=== PATIENT | female | born 1995 | race Two or more races ===

== ENCOUNTER 2017-07-09 13:10 | Emergency (ER) | payer MEDICAID ==
[~2017-07-09] VITALS: Ht 152.4 cm; Wt 44.0 kg
[2017-07-09] MEDS ORDERED: ACETAMINOPHEN 325 MG TABLET ONE (13:26)
[2017-07-09] MEDS ORDERED: AMPICILLIN/SULBACTAM 3 GM in SODIUM CHLORIDE 0.9% 100 ML IVPB ONE (13:30)
[2017-07-09] MEDS ORDERED: ACETAMINOPHEN 325 MG TABLET PO ONE (13:30)
[2017-07-09] MEDS ORDERED: PLEASE ENTER ALLERGIES MC SCH (14:00)
[2017-07-09 15:07] VITALS: BP 111/85
== END 2017-07-09 15:08 | disposition home or self-care (01) ==
LOC: ED 13:15
DX: O9A.211 Injury, poisoning and certain other consequences of external causes complicating pregnancy, first trimester (principal); S51.841A Puncture wound with foreign body of right forearm, initial encounter; W54.0XXA Bitten by dog, initial encounter; Y93.89 Activity, other specified; Y92.89 Other specified places as the place of occurrence of the external cause; Y99.8 Other external cause status; Z3A.01 Less than 8 weeks gestation of pregnancy
CPT/HCPCS: 73060; 73090; 96365; 99284; J0295

== ENCOUNTER 2018-08-09 13:46 | Emergency (ER) | payer MEDICAID ==
[~2018-08-09] VITALS: Ht 152.4 cm; Wt 50.5 kg
[2018-08-09 14:01] VITALS: BP 149/74
[2018-08-09 14:49] LABS: RAPID INFLUENZA A Negative (Negative); RAPID INFLUENZA B Negative (Negative)
== END 2018-08-09 16:34 | disposition home or self-care (01) ==
LOC: ED 15:00
DX: J01.00 Acute maxillary sinusitis, unspecified (principal)
CPT/HCPCS: 36415; 71046; 84703; 87400; 99284

== ENCOUNTER 2019-05-11 12:23 | Observation (INO) | payer MEDICAID ==
[~2019-05-11] VITALS: Ht 152.4 cm; Wt 50.0 kg
[~2019-05-11 12:23] MED LIST: PREN1TAB28 PO
[2019-05-11 13:07] LABS: MICROSCOPIC AUTO
[2019-05-11 13:08] LABS: CULTURE INDICATED? YES
--- NOTE | 2019-05-11 13:31 | NUR ---
PATIENT BROUGHT BACK FROM TRIAGE WITH CHIEF COMPLAINT OF ABD PAIN/CRAMPING STARTING THIS MORNING WITH INTERMITTENT VAGINAL BLEEDING STARTING ONE WEEK AGO. THE PATIENT STATES SHE IS 9 WEEKS AND RECENTLY TOLD BY OB THAT SHE HAS A CYST ON LT OVARY. DENIES CP, N/V, SOB/.
--- NOTE | 2019-05-11 14:26 | NUR ---
PT TO ULTRASOUND
[2019-05-11 14:31] LABS: BASOPHILS # (AUTO) 0.04 x10^3/uL (0-0.1); BASOPHILS % (AUTO) 0 % (0-1); EOSINOPHILS # (AUTO) 0.18 x10^3/uL (0-0.4); EOSINOPHILS % (AUTO) 1 % (1-7); LYMPHOCYTES # (AUTO) 1.72 x10^3/uL (1-3.4); LYMPHOCYTES % (AUTO) 11 % (22-44); MD NO; MEAN CORPUSCULAR HEMOGLOBIN 29.8 pg (27.0-34.8); MEAN CORPUSCULAR HGB CONC 33.2 g/dL (32.4-35.8); MEAN CORPUSCULAR VOLUME 89.8 fL (80-100); MEAN PLATELET VOLUME 8.7 fL (7.4-10.4); MONOCYTES % (AUTO) 4 % (2-9); NEUTROPHILS % (AUTO) 84 % (42-75); PLATELET COUNT 336 x10^3/uL (130-400); RED BLOOD COUNT 4.86 x10^6/uL (3.82-5.3); RED CELL DISTRIBUTION WIDTH 13.3 % (9.6-15.2)
[2019-05-11 14:41] LABS: ALANINE AMINOTRANSFERASE 21 U/L (12-78); ALBUMIN 4.2 g/dL (3.4-5.0); ANION GAP 7 mmol/L (5-15); CALCIUM 8.9 mg/dL (8.5-10.1); CHLORIDE 109 mmol/L (98-107); CREATININE 0.67 mg/dL (0.55-1.02)
[2019-05-11 14:45] LABS: ALKALINE PHOSPHATASE 115 U/L (45-117); BILIRUBIN,TOTAL 0.9 mg/dL (0.2-1.0); TOTAL PROTEIN 8.3 g/dL (6.4-8.2)
--- NOTE | 2019-05-11 15:18 | NUR ---
TASK RN: CATH UA ATTEMPTED. UNABLE TO OBTAIN. PT IN GREAT DEAL OF PAIN. RESTING ON GURNEY. CONNECTED TO MONITOR. VSS.
--- NOTE | 2019-05-11 15:33 | NUR ---
TASK RN: NOTIFIED MD OF INABILITY TO STRAIGHT CATH. MD IS CANCELLING ORDER.
[2019-05-11] MEDS ORDERED: SODIUM CHLORIDE 0.9% 1,000 ML IV ONE (15:52)
[2019-05-11] MEDS ORDERED: SODIUM CHLORIDE FLUSH 10ML SYR IVF ONE (16:00)
--- NOTE | 2019-05-11 16:17 | NUR ---
OB/REED AT BEDSIDE FOR UPDATE OF PLAN OF CARE.
[2019-05-11 16:25] VITALS: BP 121/67
--- NOTE | 2019-05-11 17:00 | NUR ---
DR YANEZ AT BEDSIDE FOR UPDATE
--- NOTE | 2019-05-11 17:19 | NUR ---
TYLER BENTLEY FROM OR CALLED FOR REPORT. CONSENT SIGNED.
[2019-05-11] MEDS ORDERED: BUPIVACAINE/PF 0.25% ONE (17:55)
[2019-05-11] MEDS ORDERED: MIDAZOLAM 1 MG/ML, 2ML ONE (17:55)
[2019-05-11] MEDS ORDERED: FENTANYL PF 250 MCG/5ML ONE (17:55)
[2019-05-11] MEDS ORDERED: EPINEPHRINE 1 MG/ML, 1ML ONE (17:55)
[2019-05-11] MEDS ORDERED: DEXAMETHASONE 4 MG/ML, 1ML ONE (18:00)
[2019-05-11] MEDS ORDERED: SUCCINYLCHOLINE 20 MG/ML, 10ML ONE (18:00)
[2019-05-11] MEDS ORDERED: PROPOFOL 10 MG/ML, 20ML ONE (18:00)
[2019-05-11] MEDS ORDERED: ONDANSETRON 2MG/ML, 2ML ONE (18:00)
[2019-05-11] MEDS ORDERED: ROCURONIUM 10 MG/ML,10ML ONE (18:00)
[2019-05-11] MEDS ORDERED: BUPIVACAINE/PF-EPI 0.25% 1:200K INFIL ONE (18:23)
[2019-05-11] MEDS ORDERED: hydrALAzine 20 MG/ML, 1ML IV PRN (18:30)
[2019-05-11] MEDS ORDERED: FENTANYL PF 100 MCG/2ML IV PRN (18:30)
[2019-05-11] MEDS ORDERED: OXYcodone 5 MG/5 ML ORAL.SOL UDC PO PRN ×2 (18:30→19:30)
[2019-05-11] MEDS ORDERED: MEPERIDINE/PF 25MG/0.5ML IVPush PRN (18:30)
[2019-05-11] MEDS ORDERED: HYDROmorphone 1 MG/ML, 1ML INJ IV PRN (18:30)
[2019-05-11] MEDS ORDERED: LABETALOL 5MG/ML, 20ML IV PRN (18:30)
[2019-05-11] MEDS ORDERED: KETOROLAC 30 MG/1 ML IV PRN (18:30)
[2019-05-11] MEDS ORDERED: METOCLOPRAMIDE 5 MG/ML, 2ML IV PRN (18:30)
[2019-05-11] MEDS ORDERED: ONDANSETRON 2MG/ML, 2ML IVPush PRN (18:30)
[2019-05-11] MEDS ORDERED: PROMETHAZINE 25 MG/ML, 1ML IV PRN (18:30)
[2019-05-11] MEDS ORDERED: ALBUTEROL SULFATE 2.5 MG/3 ML NPPB PRN (18:30)
[2019-05-11] MEDS ORDERED: LACTATED RINGERS 1,000 ML IV SCH (19:11)
[2019-05-11] MEDS ORDERED: MEPERIDINE/PF 25MG/ML,1ML ONE (19:21)
[2019-05-11] MEDS ORDERED: FENTANYL PF 100 MCG/2ML ONE (19:26)
[2019-05-11] MEDS ORDERED: morphine SULFATE 10 MG/ML, 1ML IVPush PRN (19:30)
[2019-05-11] MEDS ORDERED: KETOROLAC 30 MG/1 ML IVPush PRN (19:30)
[2019-05-11] MEDS ORDERED: IBUP-1222 PO (21:05)
[2019-05-11] MEDS ORDERED: OXYC5TAB2 PO (21:07)
== END 2019-05-11 22:30 | disposition home or self-care (01) ==
LOC: ED 13:41 → EDIP 16:18 → 4NE 20:15
PROVIDERS: ADMIT Obstetrics & Gynecology; ATTEND Obstetrics & Gynecology
DX: O00.102 Left tubal pregnancy without intrauterine pregnancy (principal); K66.1 Hemoperitoneum; Z3A.09 9 weeks gestation of pregnancy
CPT/HCPCS: 36415; 59151; 76801; 80053; 81001; 84702; 85025; 86850; 86900; 87086; 88305; 99291; G0378; J0171; J0330; J1100; J2175; J2250; J2405; J2704; J3010; J3490; J7030

== ENCOUNTER 2019-11-10 18:57 | Emergency (ER) | payer MEDICAID ==
[~2019-11-10] VITALS: Ht 152.4 cm; Wt 52.9 kg
[~2019-11-10 18:57] MED LIST changes: +IBUP-1222 PO; +OXYC5TAB2 PO
--- NOTE | 2019-11-10 19:19 | NUR ---
Patient presents to ER stating she is having a possible ectopic . Her fire protection engineer referred her here to get the methotrexate injection. She states that is all she is here for. She states, "the head nurse, Tiffany, knows everything and I'm just supposed to get the injection."
--- NOTE | 2019-11-10 19:32 | NUR ---
ERP made contact with patient. Patient states the nurse she talked to was Princess. Hurl Shaker being contacted.
--- NOTE | 2019-11-10 19:45 | NUR ---
Patient c/o left pelvic pain since the beginning of . Awaiting US.
[2019-11-10 19:46] VITALS: BP 105/57
[2019-11-10 20:56] LABS: ALANINE AMINOTRANSFERASE 21 U/L (12-78); ANION GAP 10 mmol/L (5-15); CALCIUM 8.7 mg/dL (8.5-10.1); CHLORIDE 105 mmol/L (98-107)
[2019-11-10 20:58] LABS: ALKALINE PHOSPHATASE 127 U/L (45-117); BILIRUBIN,TOTAL 0.8 mg/dL (0.2-1.0)
--- NOTE | 2019-11-10 23:15 | NUR ---
Form for mtx returned from pharmacy because ht/wt did not correlate with chart. Form filled out by giovanna santos and was returned again by pharmacy stating dosage was incorrect. Form and dosage verified by MD Amilcar and returned to pharmacy. Pharmacy to send med.
[2019-11-10] MEDS ORDERED: METHOTREXATE/PF 25 MG/ML, 2ML IM ONE (23:30)
--- NOTE | 2019-11-11 00:26 | NUR ---
ONC nurse consulted to johnny mtx, nurse states some confusion in protocol. RN will call back to confirm .
== END 2019-11-11 00:53 | disposition left against medical advice (07) ==
LOC: ED 11-11 00:19
DX: O26.899 Other specified pregnancy related conditions, unspecified trimester (principal); Z3A.00 Weeks of gestation of pregnancy not specified
CPT/HCPCS: 36415; 80053; 84702; 99283